=== PATIENT | female | born 1945 | race Caucasian/White ===

== ENCOUNTER 2016-04-16 09:01 | Observation (INO) | payer MEDICARE ==
[~2016-04-16] VITALS: Ht 160 cm; Wt 53.6 kg
--- NOTE | 2016-04-16 09:13 | ED.REPORT ---
HPI-Trauma Minor / Fall Date of Service Apr 16, 2016 ED Provider: Dr. Bi Mandujano Patient is a 70 year old female with a history of osteoporosis who reports to the ED via EMS complaining of right knee pain after falling down one stair She turned to walk down the stairs, missed the last step and landed on her right knee. She did not lose consciousness and has no pain if she does not move the leg. Pt could not get up after fall and could not put any pressure on the leg. The pain has gradually worsened since the fall. She had a right femur fracture several years ago which required surgery. Pt took one hydrocodone this morning. Nursing Notes Stated Complaint: GROUD LEVEL FALL/RIGHT KNEE PAIN Nursing Notes Reviewed: Yes Allergies: Coded Allergies: celecoxib (Verified Allergy, Unknown, 04/16/16) Scheduled Amlodipine (Amlodipine) 10 Mg Tablet 10 MG PO DAILY Carvedilol (Carvedilol) 6.25 Mg Tablet 9.37 MG PO BID Simvastatin (Simvastatin) 10 Mg Tablet 10 MG PO HS General Time Seen by MD: 09:13 Chief Complaint Extremity pain (right knee) Hx Obtained From: Patient Arrived By: Ambulance Onset Occurred: Just prior to arrival Symptom Duration: Since onset Caused by: Fall down stairs Location: Knee right Severity: Current: Moderate Severity: Maximum: Moderate Recent Healthcare: No recent doctor visit, No recent hospitalization Similar Sx Previous: No Past Medical History Past Medical History osteoporosis Basal cell CA Reports: Hypertension Past Surgical History Right femur Hysterectomy Appendectomy Smoking History Current Some Day Smoker Social History Alcohol Use: "Social" Other Social History: Ambulatory Status Independent Review of Systems Musculoskeletal: Reports: Joint pain (right knee), Joint swelling Neurologic: Denies: Lightheaded, Numbness, Syncope Complete sys rev & neg: except as marked. Physical Exam Initial Vital Signs Vital Signs (First) Date Time Temp Pulse Resp B/P Pulse Ox O2 Delivery O2 Flow Rate FiO2 04/16/16 09:20 36.7 72 17 139/33 95 Room Air Initial VS: Reviewed, Vital signs normal Head / Eyes: Atraumatic, Normocephalic, PERRL ENT: Mucous membranes moist, Conjunctiva normal, No scleral icterus Respiratory: Breath sounds normal, Clear to auscultation, No respiratory distress Abdomen / GI: Soft, Non-tender, No guarding, No rebound, No distention Back: No CVA tenderness Skin: Warm, Dry, No cyanosis Neurologic: Alert, Oriented, Nonfocal Psychiatric: Mood/affect normal, Behavior normal, Normal thought content General/Constitutional: Awake, Alert, Well appearing, Cooperative, Not toxic appearing Neck: Atraumatic, Supple, No meningismus, Full range of motion, No swelling, Non-tender Cardiovascular: Heart rate NL, Regular rhythm Heart Sounds / Murmur: Positive: Systolic murmur present.. (III/, right upper sternal border) Lower Extremity / Pelvis / MS: No deformity, Neurologic intact, Vascular intact , No compartment syndrome, Pelvis stable, Pelvis non-tender Right leg: Mid anterior tibial tenderness No tenderness of ankle, no swelling no overlying skin changes to posterior right calf 2/4 PT and DP pulses Interpretation & Diagnostics Interpretation & Diagnostics: KNEE CT IMPRESSION: Nondepressed lateral tibial plateau fracture. Mildly displaced fibular head fracture Severe osteopenia Partially visualized intramedullary vimal and screw fixation of the distal femur with prominent surrounding lucency raising the possibility of hardware loosening or failure. Recommend clinical correlation and if needed triple phase bone scan, versus serial radiographic followup could be performed. Small to moderate joint effusion Dictated by: Jay Snider M.D. on 04/16/2016 at 14:05 Approved by: Jay Snider M.D. on 04/16/2016 at 14:05 Lab Results Interpretation Result Diagram: 04/16/16 1630 Test 04/16/16 16:09 04/16/16 16:30 Hold Urine Received (Received) White Blood Count 7.2th/mm3 (3.8-10.1) Red Blood Count 3.68mil/mm3 (3.90-5.20) Hemoglobin 11.8g/dL (12.0-15.6) Hematocrit 35.6% (35.0-46.0) Mean Corpuscular Volume 96.7fL (81-100) Mean Corpuscular Hemoglobin 32.1pg (27.0-35.0) Mean Corpuscular Hemoglobin Concent 33.1% (32.0-37.0) Red Cell Distribution Width 13.8% (12.3-15.4) Platelet Count 364bil/L (150-400) Neutrophils (%) (Auto) 52.4% (40-74) Lymphocytes (%) (Auto) 31.7% (14-46) Monocytes (%) (Auto) 12.8% (4-12) Eosinophils (%) (Auto) 2.4% (0-5) Basophils (%) (Auto) 0.6% (0-3) Prothrombin Time 10.2sec (8.1-12.5) Prothromb Time International Ratio 0.95ratio X-Ray Interpretation Xray Interpretation: KNEE X-RAY IMPRESSION: 1. Subtle radiolucency at the intercondylar notch. Differential considerations include minimally displaced fracture versus irregular trabeculation. 2. Cortical buckling of the lateral tibial metaphysis. No priors are available to determine the acuity of this finding. No definite fracture visualized. Please correlate clinically with the above findings. If further characterization is warranted, CT of the knee may be helpful. 3. Findings suspicious for loosening of the distal aspect of the intramedullary femoral nail. Dictated by: Rosalba Champagne M.D. on 04/16/2016 at 10:55 Approved by: Rosalba Champagne M.D. on 04/16/2016 at 10:55 Interpretation / Wet Read by: Interpret - Radiologist Xray Interpretation: TIBIA/FIBULA X-RAY IMPRESSION: 1. Buckling of the lateral tibial metaphysis. The acuity of this finding is unknown without prior comparisons. If the patient verses focal pain in this region, acute injury could be suspected. 2. Subtle radiolucency through the intercondylar notch. Although this may represent trabecular irregularity, minimally displaced fracture could also be considered in the differential diagnosis. Dictated by: Rosalba Champagne M.D. on 04/16/2016 at 10:58 Approved by: Rosalba Champagne M.D. on 04/16/2016 at 10:58 Interpretation / Wet Read by: Interpret - Radiologist Re-Eval/Medical Decision Med Decision/Clinical Course 70-year-old female with a history of hypertension, hyperlipidemia, and osteoporosis presents with severe leg pain after a fall down the stairs. CT reveals fibular head fracture, tibial plateau fracture, and osteoporosis. Dr. Lawson recommended immobilization for 6 weeks and nonweightbearing. She is to follow up with him as an outpatient. We try to discharge the patient she was unable to get out of bed despite having a physical therapy consultation and having them try to help. Social work was unable to help find placement this evening. Patient's home is not amenable to her getting around with this injury. She will need to be admitted as an observation to help find placement tomorrow and for pain control. Patient and her understand and agree with this plan Re-Evaluation/Progress #1: Time of Eval: 10:45 Re-Evaluation/Progress Note: Pt rechecked. Informed pt of diagnosis and plan for treatment. Pt understands and agrees with plan. Re-Evaluation/Progress #2: Time of Eval: 13:47 Patient Status: Condition improved, Moderate relief, Pain improved Re-Evaluation/Progress Note: Pt is rechecked. Pain is much improved after oxycodone. Re-Evaluation/Progress #3: Time of Eval: 14:30 Re-Evaluation/Progress Note: Pt rechecked. Informed of plant for treatment. Pt does not need surgery but will need to wear a knee imobilizer for 3 months. Consultation #1: Referral / Consult Name: Edmundo Lawson DO Consulted With: Orthopedic Call Returned at: 13:30 Bakery Helper: Agrees with eval, Agrees with plan Note: case discussed Consultation #2: Referral / Consult Name: Edmundo Lawson DO Call Returned at: 14:19 Note: Recommends knee immobilization for 6 weeks, nonweightbearing. Follow up with him in clinic next week. Consultation #3: Note: Dr. Sanchez was paged and accepts admission as patient is unable to ambulate despite consultation with physical therapy and social work trying to arrange a place for her to stay which has been unsuccessful. Counseled Regarding: Diagnosis, Lab results, Need for admission Discharge & Departure Impression: Primary Impression: Tibial plateau fracture, right Encounter type: initial encounter Fracture type: closed Qualified Code: S82.141A - Displaced bicondylar fracture of right tibia, initial encounter for closed fracture Additional Impressions: Fall down stairs Encounter type: initial encounter Qualified Code: W10.8XXA - Fall (on) (from ) other stairs and steps, initial encounter Fracture of head of fibula Encounter type: initial encounter Fracture type: closed Laterality: right Qualified Code: S82.831A - Other fracture of upper and lower end of right fibula, initial encounter for closed fracture Osteoporosis Inability to ambulate due to right knee Disposition: ADMITTED TO HOSPITAL Discharge Condition All VS Reviewed: Yes Condition: Stable Patient Instructions: How to Choose and Use a Walker (GEN), Leg Fracture (ED) Referrals: Edmundo Lawson DO [facility] Scribe Attestation Portion of this note were transcribed by Rafal Zelaya and Josefina Akhtar. I, Dr. Gu, personally performed the history, physical exam, and medical decision-making: I reviewed and confirmed the accuracy for the information in the transcribed note. Signed by: clifton Rojas, 04/16/16 1100 copies to: Edmundo Lawson Gary R DO Apr 16, 2016 09:13 JOSEFINA AKHTAR Apr 16, 2016 09:51 RAFAL EZLAYA Apr 16, 2016 11:49
[2016-04-16 09:20] VITALS: BP 139/33; PULSE 72; RESP 17; O2SAT 95
[2016-04-16] MEDS ORDERED: HYDROcodone-APAP 5-325 mg Tablet PO ONE ×2 (10:35→12:05)
[2016-04-16 10:54] VITALS: BP 135/73; PULSE 64; RESP 15; O2SAT 95
--- NOTE | 2016-04-16 10:56 | DRSVH ---
PROCEDURE: X-RAY RIGHT KNEE, THREE VIEWS ([id number]) INDICATIONS: r tibia pain after fall TECHNIQUE: 3 views of the knee were acquired. COMPARISON: [facility], CR, XR TIBIA FIBULA 2VW RT, 04/16/2016, 10:11. FINDINGS: Bones: Bones are osteopenic. Visualized portions of the femoral intramedullary nail are intact. Bony lucency is present well around the femoral nail suggesting loosening. A subtle radiolucent line is pr esent near the intercondylar notch. It is unclear whether this represents trabecular irregularities o r a small minimally displaced fracture. There is cortical buckling along the lateral aspect of the pr oximal tibia. It is unclear whether this represents a chronic finding or an acute finding as no prior comparisons are available. Soft tissues: There is a small joint effusion. IMPRESSION: 1. Subtle radiolucency at the intercondylar notch. Differential considerations include minimally disp laced fracture versus irregular trabeculation. 2. Cortical buckling of the lateral tibial metaphysis. No priors are available to determine the acuit y of this finding. No definite fracture visualized. Please correlate clinically with the above findings. If further characterization is warranted, CT of the knee may be helpful. 3. Findings suspicious for loosening of the distal aspect of the intramedullary femoral nail. Dictated by: Rosalba Champagne M.D. on 04/16/2016 at 10:55 Approved by: Rosalba Champagne M.D. on 04/16/2016 at 10:55
--- NOTE | 2016-04-16 11:00 | DRSVH ---
PROCEDURE: X-RAY RIGHT TIBIA/FIBULA, TWO VIEWS ([id number]) INDICATIONS: r tibia pain after fall TECHNIQUE: 2 views of the tibia and fibula were acquired. COMPARISON: None. FINDINGS: Bones: There is buckling of the lateral tibial metaphysis, the acuity of which is unknown. Subtle rad iolucency is present at the intercondylar notch. No other findings to suggest fracture or dislocation . Soft tissues: No suspicious soft tissue calcifications or masses. IMPRESSION: 1. Buckling of the lateral tibial metaphysis. The acuity of this finding is unknown without prior com parisons. If the patient verses focal pain in this region, acute injury could be suspected. 2. Subtle radiolucency through the intercondylar notch. Although this may represent trabecular irregu larity, minimally displaced fracture could also be considered in the differential diagnosis. Dictated by: Rosalba Champagne M.D. on 04/16/2016 at 10:58 Approved by: Rosalba Champagne M.D. on 04/16/2016 at 10:58
[2016-04-16 13:23] VITALS: BP 119/45; PULSE 65; RESP 18; O2SAT 97
--- NOTE | 2016-04-16 14:06 | DRSVH ---
PROCEDURE: CT KNEE RIGHT W/O CONTRAST ([id number]) INDICATIONS: unable to walk after fall TECHNIQUE: Noncontrast 1-1.5 mm axial sections acquired from the mid-patella to the proximal tibia, with coronal and sagittal reformats. COMPARISON: [facility], CR, XR TIBIA FIBULA 2VW RT, 04/16/2016, 10:11. FINDINGS: Image quality: Excellent. Bones: Diffuse osteopenia. Oblique, lateral tibial metaphyseal fracture, for example image 74 series 4. No definite depression of the articular surface. The fracture appears to extend to the base of the intercondylar notch although not well seen due to severe osteopenia. Mildly displaced fracture of th e fibular head Post surgical changes related to intramedullary vimal and screw fixation in the distal femur. Mild deg enerative joint disease with subchondral sclerosis. Soft tissues: Moderate joint effusion. IMPRESSION: Nondepressed lateral tibial plateau fracture. Mildly displaced fibular head fracture Severe osteopenia Partially visualized intramedullary vimal and screw fixation of the distal femur with prominent surroun ding lucency raising the possibility of hardware loosening or failure. Recommend clinical correlation and if needed triple phase bone scan, versus serial radiographic followup could be performed. Small to moderate joint effusion Dictated by: Jay Snider M.D. on 04/16/2016 at 14:05 Approved by: Jay Snider M.D. on 04/16/2016 at 14:05
--- NOTE | 2016-04-16 16:12 | NUR ---
Evaluation completed. Please go to "Notes" then click on "Assessments and Notes" (bottom left corner of screen). Then select appropriate discipline tab on top of screen.
[2016-04-16 16:32] VITALS: BP 141/55; PULSE 69; RESP 13; O2SAT 97
[2016-04-16] MEDS ORDERED: CARV6.252 PO (16:38)
[2016-04-16] MEDS ORDERED: AMLO10TA3 PO (16:38)
[2016-04-16] MEDS ORDERED: SIMV10TA4 PO (16:38)
[2016-04-16 16:51] LABS: BASOPHILS % (AUTO) 0.6 % (0-3); EOSINOPHILS % (AUTO) 2.4 % (0-5); MONOCYTES % (AUTO) 12.8 % (4-12); Mean Corpuscular Hemoglobin 32.1 pg (27.0-35.0); Mean Corpuscular Volume 96.7 fL (81-100); NEUTROPHILS % (AUTO) 52.4 % (40-74); Platelet Count 364 bil/L (150-400)
[2016-04-16 17:03] LABS: INR 0.95 ratio
[2016-04-16] MEDS ORDERED: Alum-Mag Hydrox-Simeth 30 mL Suspension PO PRN (17:55)
[2016-04-16] MEDS ORDERED: Ondansetron 2 mg/mL 2 mL Inj IVPUSH PRN ×2 (17:55→18:00)
--- NOTE | 2016-04-16 18:30 | NUR ---
Arrival Pt arrived to the floor via one gurney. Pt hollered out in pain and clutched the side of the bed when we slid her to the bed from the gurney. Pt is tearful and states that this is the worst pain of her whole life. Paged regarding her pain.
[2016-04-16 18:53] VITALS: BP 147/71; PULSE 83; RESP 19; O2SAT 92
[2016-04-16] MEDS ORDERED: ALPR0.5T8 PO (20:11)
[2016-04-16] MEDS: HYDROmorphone 0.5 mg/0.5 mL iSecure Syringe IVPUSH PRN (20:52)
[2016-04-16] MEDS: ALPRAZolam 0.5 mg Tablet PO PRN (20:56)
[2016-04-16 21:06] VITALS: BP 190/74; PULSE 93; RESP 20; O2SAT 93
--- NOTE | 2016-04-16 21:42 | PCM.HPMED ---
Subjective Date of Service Apr 16, 2016 Primary Provider: Admitting Physician: Corin Sanchez MD Primary Care Physician: Trinidad Kaur MD Attending Physician: Corin Sanchez MD Chief Complaint: Right knee pain after fall HISTORY was OBTAINED FROM PATIENT / MEDITECH NOTES History of present illness 70-year-old female, smoker, osteoporosis, missed a step and landed on her knee right, presented to the ER due to pain of the knee right. She was found to have tibial fracture. Dr. Jernigan from orthopedics recommended immobilization and nonweightbearing for 6 weeks with follow-up in his office. In the ER she was unable to ambulate with physical therapy and was admitted for pain control and PT. Review of Systems - none of the following - F/C/sick contact / wt change/ BARRIENTOS / lightheaded / dizziness / sob / cough / cp / acid reflux / n/v/diarrhea / bleeding/bruising / leg swelling / change in voiding / yeast infections / rash FAMILY HX osteoporosis SOCIAL HX smoker < 2cig per day MEDICATIONS alprazolam, amlodipine, Coreg, simvastatin, vit D Past Medical/Surgical HX Hypertension, dyslipidemia, anxiety right femur fracture GLF osteoporosis, considering fosamax Allergies Coded Allergies: celecoxib (Verified Allergy, Unknown, 04/16/16) PMH Social History Hx Alcohol Use: No Alcoholic Drinks Per Day: socially Hx Substance Use: No Smoking Status: Current Some Day Smoker Exam Vital Signs Vital Sign - Last Date Time Temp Pulse Resp B/P Pulse Ox O2 Delivery O2 Flow Rate FiO2 04/16/16 21:06 36.9 93 20 190/74 93 Room Air Lab and Diagnostics Labs Exam on admission NAD A and O x 3 mood affect WNL NC/AT no icterus no injected eyes EOMI PERRL /no pharyngeal lesions/ no oral lesions / hearing intact Supple neck CTAB equal chest rise / no accessory muscle use / speaks in full sentences / no rrw RRR S1 S2 / no mrg / 2+ radial pulses Soft nt nd + BS no hepatosplenomegaly No edema no cyanosis no ecchymosis of lower extremities No rash / no jaundice BACON ill fitting left llower extremity brace Abraham to be placed due to pain with bedpan Result Diagram: 04/16/16 1630 04/16/16 1630 Assessment & Plan Active issues and reason for admission Right knee fracture due to Ground-level fall, with radiographic osteoporosis, severe, w/ ongoing pain --already on Vit D low dose, cannot tolerate high does, considering fosamax w/ PCP, not convinced --pending PT, immobilize right leg x [address] Markham 6 weeks. --morphine not helpful, start percocet - tolerated w/ prior femur fracture, prn diluadid --dc abraham when pain controlled Chronic issues known prior to admission, present on admission anxiety smoker, < 2 cig per day HTN/DLP --resume home meds Diet cardiac DVT prophylaxis heparin Code full Disposition obs status Assessment and plan were discussed with patient. Corin Sanchez MD Apr 16, 2016 21:42
[2016-04-16] MEDS ORDERED: oxyCODONE-Acetamin 5-325 mg Tablet PO PRN (21:45)
[2016-04-16 22:22] LABS: APPEARANCE,URINE CLEAR (CLEAR,HAZY); COLOR,URINE STRAW (YELLOW); OCCULT BLOOD,URINE NEGATIVE (NEGATIVE); UROBILINOGEN,URINE NORMAL (NORMAL)
[2016-04-17 01:04] VITALS: BP 178/72; PULSE 89; RESP 18; O2SAT 93
[2016-04-17] MEDS: Heparin 5,000 Unit/mL Inj SUBQ SCH ×3 (01:20→16:38)
--- NOTE | 2016-04-17 03:35 | NUR ---
Update on care Pt. has been in extreme amount of pain throughout night. IV Dilaudid seems to lower pain a bit to a more comfortable level. Pt. refused full skin assessment, as she stated "I can't roll to my side, it's too painful". Will continue to monitor.
[2016-04-17] MEDS: oxyCODONE-Acetamin 5-325 mg Tablet PO PRN ×2 (03:56→08:52)
[2016-04-17 05:21] VITALS: BP 155/75; PULSE 81; RESP 20; O2SAT 95
[2016-04-17 09:41] VITALS: BP 137/56; PULSE 76; RESP 17; O2SAT 95
--- NOTE | 2016-04-17 11:10 | NUR ---
Social Work: Initial Assessment D: Per EMR review, pt is a 70 year old female admitted for Tibial Plateu Fracture. Pt is Medicare with [employer] supplement; pt has no LTC insurance or VA benefits. PCP is Trinidad Kaur MD. NOK is Edmundo Erazo, Spouse, . Pt is in observation status. No readmit score entered at this time. Advanced directives information provided to patient and spouse. CONCRETE VAULT MAKER met with pt at bedside to complete dcp. Sw role explained. See initial assessment. Pt lives with her spouse on [address]. She is completely I at baseline and missed a step resulting in an inoperable knee fracture. Pt currently in a knee immobilizer with 6 weeks non-weightbearing orders. Pt states her home has 17 internal stairs with 3 steps to enter. Pt has never had home health or skilled rehab placements. CONCRETE VAULT MAKER reviewed discharge options with pt. At this time, pt states that her pain is not controlled and that she cannot even have her sock removed without writhing pain. MD is aware and has ordered some new pain medications. Ortho PA is also coming to re-evaluate the pt's knee immobilizer. Pt and spouse understand that due to observation status, a stay at skilled rehab would be a private pay expense. They would like a private pay quote for [facility]. Physical therapy previously worked with pt while in the ER however due to pt's pain a full evaluation was not completed. CONCRETE VAULT MAKER spoke with PT who will see the pt today after pt's pain is better controlled to assess pt's current needs/abilities. A: Pt who was I prior to admission. P: Evolving; CONCRETE VAULT MAKER to follow up with pt and spouse after PT evaluation this afternoon. Pt to either discharge to skilled rehab paying privately or home with home health and possible private pay caregivers. ALLEY Mao Addendum: 04/17/16 at 1119 by FRANCIA M HALTERMA SS Amended: Links added. Addendum: 04/17/16 at 1630 by FRANCIA TROTTER SS Pt has declined to work with PT today stating pain is not controlled enough. CONCRETE VAULT MAKER met with pt at bedside to request she work with PT so that appropriate assessment, teaching and planning can occur. Pt states that she will do this tomorrow. CONCRETE VAULT MAKER reminded pt of observation status however pt seems to have no sense of urgency to ambulate or discuss a plan. CONCRETE VAULT MAKER discussed private pay SNF options and provided rates for [facility]. Pt and spouse state that they do not wish to have referrals sent anywhere and that they plan to go home at time of discharge, tour facilities as an outpatient and then decide which one they would like to pay privately at. Pt will require a wheelchair with an elevated leg rest. Dr. Lawson has ordered this and dictated necessity for wheelchair. CONCRETE VAULT MAKER contacted [employer] and [employer]. None of the suppliers can deliver this piece of equipment for pt's anticipated discharge tomorrow. [employer] was willing to deliver this equipment but is not contracted with Medicare. CONCRETE VAULT MAKER inquired if pt was able to pay privately or rent the wheelchair through [employer]. They declined this stating that they would like for it to be billed through Medicare. They understand this will postpone discharge likely until Tuesday when a chair can be delivered and that they are in observation status.
[2016-04-17] MEDS: hydrOXYzine Pamoate 25 mg Capsule PO PRN ×2 (11:59→21:15)
[2016-04-17] MEDS: HYDROmorphone 0.5 mg/0.5 mL iSecure Syringe IVPUSH PRN (12:40)
--- NOTE | 2016-04-17 13:56 | CONS ---
[address] [address] CONSULTATION REPORT PATIENT: EMILY ZARATE : 1945 MR#: [id number] ADMIT: 04/16/2016 JOB ID: [id number] DATE OF SERVICE: 04/17/2016 CHIEF COMPLAINT: Right knee pain. HISTORY OF PRESENT ILLNESS: The patient is a 70-year-old female who missed the last step coming down a staircase and injured her right knee. She was unable to ambulate after the fall. She had onset of severe pain, sharp as well as achy, and with spasms. PAST MEDICAL HISTORY: Significant for hypertension, dyslipidemia, right femur fracture, osteoporosis. MEDICATIONS: Include alprazolam, amlodipine, Coreg, simvastatin, vitamin D. SOCIAL HISTORY: Positive for smoking. ALLERGIES: Celebrex. REVIEW OF SYSTEMS: The patient denies fevers, chills, lightheadedness, dizziness, shortness of breath, chest pain. PHYSICAL EXAMINATION: Blood pressure 135/56, pulse rate 76, respirations 17, temperature 36.7. She is alert and cooperative, in no acute distress. Right lower extremity: Her skin is intact overlying the knee. Her compartments are soft. She has moderate effusion present in the knee. She has pain with any range of motion of the knee and tenderness over the proximal tibia. She is able to move her toes. Sensation to the foot is intact. Dorsalis pedis pulses plus two. Capillary refill less than 3 seconds. Denies any other musculoskeletal injuries. Her left knee has excellent range of motion, without pain or deformity. IMAGING: X-rays demonstrate a right nondisplaced lateral tibial plateau fracture. ASSESSMENT: Right nondisplaced lateral tibial plateau fracture. PLAN: We discussed treatment options and I recommended nonoperative treatment with a knee immobilizer and nonweightbearing. She was placed into an appropriately sized knee immobilizer. I would like her remain nonweightbearing on the right lower extremity for likely a period of 6-12 weeks. I would like her to follow up with me in the clinic in about 7-10 days for recheck with x-rays. Anticipate that she will need to use a walker as well as a wheelchair with leg extension and her is going to need time in order to build a ramp to get her into the home and also to make arrangements, as they generally sleep upstairs. I am initiating fracture care for this patient for closed treatment right tibial plateau fracture and I spent 40 minutes of [id number] time with the patient, greater than 50% of which was in discussion of and coordination of care and counseling regarding her injury and treatment.
--- NOTE | 2016-04-17 15:44 | PCM.PNMED ---
Subjective Date of Service Apr 17, 2016 Subjective pain not controlled w/ oral narcotics, still relied on dialudid Exam Vital Signs Vital Sign - Last Date Time Temp Pulse Resp B/P Pulse Ox O2 Delivery O2 Flow Rate FiO2 04/17/16 09:41 36.7 76 17 137/56 95 Room Air Intake and Output 04/16/16 04/16/16 04/17/16 Cumulative From/Thru 15:00 23:00 07:00 04/16/16 09:20 - 04/17/16 04:51 Intake Total 0 ml 0 ml Output Total 0 ml 0 ml Balance 0 ml 0 ml Intake Oral 0 ml 0 ml Output Urine Total 0 ml 0 ml Exam NAD A and O x 3 eating dinner CTAB RRR blowing systolic murmur soft nt nd + BS longer immobilizer on right lower extremity no edema toes are warm and mobile Lab and Diagnostics Result Diagram: 04/16/16 1630 04/16/16 1630 Assessment & Plan Active issues and reason for admission Right tibial plateau fracture due to Ground-level fall, with radiographic osteoporosis, severe, w/ ongoing pain and spasm --already on Vit D low dose, increase, though cannot tolerate high does, will accept fosamax w/ PCP now, --pending PT, nonweight bearing and immobilize right knee x 6-12 weeks, walker, knee immobilizer. Anticipate that she will need to use a walker as well as a wheelchair with leg extension .F/U /dr Lawson in 7-10 days in office w/ xray --morphine not helpful, started percocet and increased, prn diluadid -- add vistaril for spams Chronic issues known prior to admission, present on admission osteoporsis anxiety smoker, < 2 cig per day HTN/DLP --resume home meds --vitamin d Diet cardiac DVT prophylaxis heparin Code full Disposition obs status Assessment and plan were discussed with patient . VTE Mechanical Devices: Intermittant Pneumatic CD Corin Sanchez MD Apr 17, 2016 15:44
[2016-04-17] MEDS: oxyCODONE-Acetamin 10-325 mg Tablet PO PRN ×2 (15:45→21:15)
[2016-04-17 15:54] VITALS: BP 160/65; PULSE 75; RESP 16; O2SAT 92
--- NOTE | 2016-04-17 17:12 | NUR ---
Observation information provided and explained.
[2016-04-17 20:12] VITALS: BP 127/65; PULSE 69; RESP 16; O2SAT 92
[2016-04-18] MEDS: Heparin 5,000 Unit/mL Inj SUBQ SCH ×3 (01:02→16:46)
[2016-04-18] MEDS: hydrOXYzine Pamoate 25 mg Capsule PO PRN ×5 (05:13→21:04)
[2016-04-18] MEDS: oxyCODONE-Acetamin 10-325 mg Tablet PO PRN ×5 (05:13→21:04)
--- NOTE | 2016-04-18 06:31 | NUR ---
Pain Pt reporting knee/calf pain up to 12/12 and has been taking 2 Percocet and 1 tab of vistaril. Pt reports this to be adequate for pain relief. Pt has immobilizer on left leg and absolutely refuses to move her left leg at all. Orthos intact. Pt has been using the bed cameron to void and has been getting better at doing this. Addendum: 04/18/16 at 2142 by NABIL ANTHONY RN RIGHT LEG NOT LEFT
[2016-04-18 08:02] VITALS: BP 119/65; PULSE 81; RESP 17; O2SAT 92
[2016-04-18 12:39] VITALS: BP 146/69; PULSE 83; RESP 18; O2SAT 92
--- NOTE | 2016-04-18 14:41 | PCM.PNMED ---
Subjective Date of Service Apr 18, 2016 Subjective She remains immobilized by right knee pain and probably mostly by fear of right knee pain. She complains of poor sleep although she looked to staff like she was sleeping well last night. She has been too drowsy appearing to be placed on additional sleep sedative. Placement is proving to be a challenge. Exam Vital Signs Vital Sign - Last Date Time Temp Pulse Resp B/P Pulse Ox O2 Delivery O2 Flow Rate FiO2 04/17/16 20:12 36.8 69 16 127/65 92 Room Air Intake and Output 04/17/16 04/17/16 04/18/16 Cumulative From/Thru 15:00 23:00 07:00 04/16/16 09:20 - 04/18/16 05:43 Intake Total 120 ml 410 ml 530 ml Output Total 840 ml 1241 ml 2081 ml Balance -720 ml -831 ml -1551 ml Intake Oral 120 ml 400 ml 520 ml IV Total 10 ml 10 ml Output Urine Total 840 ml 1241 ml 2081 ml # Voids 3 3 # Bowel Movements 0 0 Exam Heart: RRR without murmur Lungs: CTAB Ext: No ankle edema. The right knee is in a brace. She is tender and fearful of touch/movement in a non physiologic manner. IVs and Medications Medications Reviewed: Medications were reviewed in detail Lab and Diagnostics Result Diagram: 04/16/16 1630 04/16/16 1630 X-Rays, CTs and MRIs CT KNEE RIGHT W/O CONTRAST ([id number]) INDICATIONS: unable to walk after fall TECHNIQUE: Noncontrast 1-1.5 mm axial sections acquired from the mid-patella to the proximal tibia, with coronal and sagittal reformats. COMPARISON: [facility], CR, XR TIBIA FIBULA 2VW RT, 04/16/2016, 10: 11. FINDINGS: Image quality: Excellent. Bones: Diffuse osteopenia. Oblique, lateral tibial metaphyseal fracture, for example image 74 series 4. No definite depression of the articular surface. The fracture appears to extend to the base of the intercondylar notch although not well seen due to severe osteopenia. Mildly displaced fracture of the fibular head Post surgical changes related to intramedullary vimal and screw fixation in the distal femur. Mild degenerative joint disease with subchondral sclerosis. Soft tissues: Moderate joint effusion. IMPRESSION: Nondepressed lateral tibial plateau fracture. Mildly displaced fibular head fracture Severe osteopenia Partially visualized intramedullary vimal and screw fixation of the distal femur with prominent surrounding lucency raising the possibility of hardware loosening or failure. Recommend clinical correlation and if needed triple phase bone scan, versus serial radiographic followup could be performed. Small to moderate joint effusion Dictated by: Jay Snider M.D. on 04/16/2016 at 14:05 Assessment & Plan Active issues Right tibial plateau fracture due to Ground-level fall, with radiographic osteoporosis, severe, w/ ongoing pain and spasm --already on Vit D low dose, increase, though cannot tolerate high does, will accept fosamax w/ PCP now, --pending PT, nonweight bearing and immobilize right knee x 6-12 weeks, walker, knee immobilizer. Anticipate that she will need to use a walker as well as a wheelchair with leg extension .F/U /dr Lawson in 7-10 days in office w/ xray --morphine not helpful, started percocet and increased, prn diluadid -- add vistaril for spams -- Anxiety about pain is a major contributor to her disabled / bed confined attitude so far. -- She will need lots of reassurance, and will need a wheelchair with a foot rest extension before going home. Partially visualized intramedullary vimal and screw fixation of the distal femur with prominent surrounding lucency raising the possibility of hardware loosening or failure. --Not mentioned in Dr. Lawson's note. This would appear to be a chronic type of problem that can be deferred to her orthopedic office follow up visit. Chronic issues known prior to admission, present on admission osteoporsis anxiety smoker, < 2 cig per day HTN/DLP --resume home meds --vitamin d Diet cardiac DVT prophylaxis heparin Code full Disposition obs status, Assessment Counselor working on a discharge plan. Assessment and plan were discussed with the patient and her . VTE Mechanical Devices: Intermittant Pneumatic CD Daniel Randolph MD Apr 18, 2016 07:46
[2016-04-18 18:07] VITALS: BP 118/58; PULSE 93; RESP 18; O2SAT 90
--- NOTE | 2016-04-18 19:28 | NUR ---
Pain P: Pt continues to rate pain at an "Okay" 6/10 at rest but has severe pain with any movement or contact. Pt refusing turns and heel floating despite education. Only able to float heel for 3 hours today. Percocet x2 causes pt to be drowsy and confused and did nothing to stop severe pain with movement. I: Percocet dose lowered to 1 tablet and given with Vistaril. Anxiety coaching and deep breathing taught prior to movement. E: Same pain control effects noted with pt more alert and active. Pt refused multiple attempts to increase dose back to 2 tablets. Pt got to EOB with PT today and tolerated heel floating and frequent bedpan use. Much more active today.
[2016-04-18 19:45] VITALS: BP 122/55; PULSE 92; RESP 16; O2SAT 90
[2016-04-18 21:50] VITALS: RESP 16; O2SAT 94
[2016-04-19] MEDS: Heparin 5,000 Unit/mL Inj SUBQ SCH ×3 (00:38→17:27)
--- NOTE | 2016-04-19 02:34 | NUR ---
Activity/pain Pt reporting pain to be more tolerable tonight, up to 7/10 and requiring only 1 tab of Percocet and 1 tab of Vistaril. Pt has allowed her heels to be floated, skin is red but blanches, mepilex intact to heel. Pt will not let us reposition/ move her right leg due to pain, despite education on skin protection. Pt continues to use bedpan. Allowed SCDs on for about 4 hrs and then wanted to "take a break" Pt did receive her heparin shot as well. Leg immobilizer in place on right leg, orthos intact. Ice applied to right knee.
[2016-04-19] MEDS: hydrOXYzine Pamoate 25 mg Capsule PO PRN ×4 (04:52→21:32)
[2016-04-19] MEDS: oxyCODONE-Acetamin 10-325 mg Tablet PO PRN ×4 (04:53→21:32)
[2016-04-19 07:14] LABS: BASOPHILS % (AUTO) 0.3 % (0-3); MONOCYTES % (AUTO) 8.3 % (4-12); Mean Corpuscular Volume 97.8 fL (81-100); NEUTROPHILS % (AUTO) 74.4 % (40-74); Platelet Count 313 bil/L (150-400)
[2016-04-19 08:12] VITALS: BP 109/64; PULSE 77; RESP 16; O2SAT 91
--- NOTE | 2016-04-19 11:57 | NUR ---
Social Work Continued Discharge Planning: SW met with patient at bedside to discuss discharge plan. Therapy recommending SNF placement at this time. Patient and states plan as home with who to provide support and care. Patient states not wanting to discharge to SNF as to care for her needs. Patient and states that ramp to be built to assist with transfers into home with wheelchair. Patient states bed to be obtained for home use as no bed located on main floor. Patient and in agreement to [facility] at this time. Choice as [facility]. Choice list offered. SW followed up on wheelchair order previously obtained. SW contacted [employer], and spoke to rep Fernie who states that order received and processing. Fernie states that insurance auth to be attempted but due to holiday, wheelchair may be unable to be delivered. Face to face signed and access provided to [facility]. SW spoke to [facility] rep [employer] who was aware and to begin service arrangements upon discharge. SW to follow. PLAN: Home with and [facility] to follow. DME for wheelchair being processed via [employer], and awaiting insurance auth Elina HAGER
--- NOTE | 2016-04-19 12:57 | PCM.PNMED ---
Subjective Date of Service Apr 19, 2016 Subjective pt c/o pain 7-9/10 with minimal movement - eating with at bedside. will plan for likely dc tomorrow to SNF which pt did not consider until notified by myself. Pt states she will think about it, cont pain control today - no cp/sob/f Exam Vital Signs Vital Sign - Last Date Time Temp Pulse Resp B/P Pulse Ox O2 Delivery O2 Flow Rate FiO2 04/19/16 08:12 37.2 77 16 109/64 91 Room Air Intake and Output 04/18/16 04/18/16 04/19/16 Cumulative From/Thru 15:00 23:00 07:00 04/16/16 09:20 - 04/19/16 06:26 Intake Total 300 ml 1400 ml 400 ml 2630 ml Output Total 525 ml 2500 ml 600 ml 5706 ml Balance -225 ml -1100 ml -200 ml -3076 ml Intake Oral 300 ml 1400 ml 400 ml 2620 ml IV Total 0 ml 10 ml Output Urine Total 525 ml 2500 ml 600 ml 5706 ml # Voids 4 7 # Bowel Movements 0 0 0 Exam Heart: RRR +SM 2/6 at RUSB Lungs: CTAB, no w/r/r Ext: No ankle edema. The right knee is in a brace. motor exam limited d/t pain, sensation intact IVs and Medications Medications Reviewed: Medications were reviewed in detail Lab and Diagnostics Result Diagram: 04/19/16 0655 04/19/16 0655 X-Rays, CTs and MRIs CT KNEE RIGHT W/O CONTRAST ([id number]) INDICATIONS: unable to walk after fall TECHNIQUE: Noncontrast 1-1.5 mm axial sections acquired from the mid-patella to the proximal tibia, with coronal and sagittal reformats. COMPARISON: [facility], CR, XR TIBIA FIBULA 2VW RT, 04/16/2016, 10: 11. FINDINGS: Image quality: Excellent. Bones: Diffuse osteopenia. Oblique, lateral tibial metaphyseal fracture, for example image 74 series 4. No definite depression of the articular surface. The fracture appears to extend to the base of the intercondylar notch although not well seen due to severe osteopenia. Mildly displaced fracture of the fibular head Post surgical changes related to intramedullary vimal and screw fixation in the distal femur. Mild degenerative joint disease with subchondral sclerosis. Soft tissues: Moderate joint effusion. IMPRESSION: Nondepressed lateral tibial plateau fracture. Mildly displaced fibular head fracture Severe osteopenia Partially visualized intramedullary vimal and screw fixation of the distal femur with prominent surrounding lucency raising the possibility of hardware loosening or failure. Recommend clinical correlation and if needed triple phase bone scan, versus serial radiographic followup could be performed. Small to moderate joint effusion Dictated by: Jay Snider M.D. on 04/16/2016 at 14:05 Assessment & Plan Active issues Right tibial plateau fracture due to Ground-level fall, with radiographic osteoporosis, severe, w/ ongoing pain and spasm --already on Vit D low dose, increase, though cannot tolerate high does, will accept fosamax w/ PCP now, --pending PT, nonweight bearing and immobilize right knee x 6-12 weeks, walker, knee immobilizer. Anticipate that she will need to use a walker as well as a wheelchair with leg extension .F/U /dr Lawson in 7-10 days in office w/ xray --morphine not helpful, started percocet and increased -- add vistaril for spams -- Anxiety about pain is a major contributor to her disabled / bed confined attitude so far. -- She will need lots of reassurance, and will need a wheelchair with a foot rest extension before going home --> will consider SNF tonight after lengthy discussion at bedside Partially visualized intramedullary vimal and screw fixation of the distal femur with prominent surrounding lucency raising the possibility of hardware loosening or failure. --Not mentioned in Dr. Lawson's note. This would appear to be a chronic type of problem that can be deferred to her orthopedic office follow up visit. Chronic issues known prior to admission, present on admission osteoporsis anxiety smoker, < 2 cig per day HTN/DLP --resume home meds --vitamin d Diet cardiac DVT prophylaxis heparin Code full Disposition obs status, likely dc to snf tomorrow if CM/SW able to facilitate. Assessment and plan were discussed with the patient and her . Pain Evaluation: Pain not Controlled VTE Mechanical Devices: Intermittant Pneumatic CD Resuscitation Status: CPR: Attempt Resuscitation Time spent 35 minutes spent with evaluation and mgmt Stu Moore DO Apr 19, 2016 12:57
[2016-04-19 16:00] VITALS: BP 103/54; PULSE 84; RESP 17; O2SAT 92
--- NOTE | 2016-04-19 19:26 | NUR ---
Pain Pt pain well controlled with 1 Percocet and 1 Vistaril q4 hours PRN, Right leg in immobilizer, good cap refill, pulses and feeling to foot. Up with PT this am, able to stand at edge of bed.
[2016-04-19 19:41] VITALS: BP 121/63; PULSE 77; RESP 18; O2SAT 94
[2016-04-20] MEDS: Heparin 5,000 Unit/mL Inj SUBQ SCH ×3 (00:38→15:43)
[2016-04-20 04:58] VITALS: BP 144/67; PULSE 74; RESP 20; O2SAT 93
[2016-04-20] MEDS: hydrOXYzine Pamoate 25 mg Capsule PO PRN ×4 (05:06→18:49)
[2016-04-20] MEDS: oxyCODONE-Acetamin 10-325 mg Tablet PO PRN ×4 (05:06→18:49)
--- NOTE | 2016-04-20 05:10 | NUR ---
Activity/pain Pt reporting pain to be more tolerable tonight, up to 5-8/10, pt spreading out pain meds to q6-7 hrs before needing. 1 tab of Percocet and 1 tab of Vistaril have been effective. Immobilizer in place to right leg, sensation intact, warm extremity, pedal pulses palpable, wiggles toes. Mepilex intact to right heel, redness still blanching. Pt continues to refuse repositioning and also did not want heel lift or SCDs despite education. Pt is getting better at using bedpan to void.
--- NOTE | 2016-04-20 07:25 | PCM.PNMED ---
Subjective Date of Service Apr 20, 2016 Subjective Patient is continuing to have right leg pain. She is status post displaced bicondylar fracture of the right tibia closed fracture. With repair. She tells me she was just sitting up at bedside for the first time yesterday. She did do some work with physical therapy yesterday. She notes she had a poor night sleeping. Exam Vital Signs Vital Sign - Last Date Time Temp Pulse Resp B/P Pulse Ox O2 Delivery O2 Flow Rate FiO2 04/20/16 04:58 36.8 74 20 144/67 93 Room Air Intake and Output 04/19/16 04/19/16 04/20/16 Cumulative From/Thru 15:00 23:00 07:00 04/16/16 09:20 - 04/20/16 06:32 Intake Total 520 ml 250 ml 3400 ml Output Total 600 ml 800 ml 7106 ml Balance -80 ml -550 ml -3706 ml Intake Oral 520 ml 250 ml 3390 ml IV Total 10 ml Output Urine Total 600 ml 800 ml 7106 ml # Voids 7 # Bowel Movements 0 0 Exam Constitutional: Elderly woman in some pain distress Head: Normocephalic atraumatic Chest: Clear to auscultation Cor: Regular rate and rhythm S1-S2 Abdomen: Soft nontender bowel sounds present Extremities: No pedal edema noted right leg has immobilizer present Lab and Diagnostics Laboratory Tests 72 Hours Test 04/19/16 06:55 White Blood Count 11.6th/mm3 (3.8-10.1) Red Blood Count 3.16mil/mm3 (3.90-5.20) Hemoglobin 10.1g/dL (12.0-15.6) Hematocrit 30.9% (35.0-46.0) Mean Corpuscular Volume 97.8fL (81-100) Mean Corpuscular Hemoglobin 32.0pg (27.0-35.0) Mean Corpuscular Hemoglobin Concent 32.7% (32.0-37.0) Red Cell Distribution Width 13.5% (12.3-15.4) Platelet Count 313bil/L (150-400) Neutrophils (%) (Auto) 74.4% (40-74) Lymphocytes (%) (Auto) 15.7% (14-46) Monocytes (%) (Auto) 8.3% (4-12) Eosinophils (%) (Auto) 1.0% (0-5) Basophils (%) (Auto) 0.3% (0-3) Sodium Level 133mEq/L (134-144) Potassium Level 3.9mEq/L (3.5-5.2) Chloride Level 96mEq/L (97-108) Carbon Dioxide Level 26mmol/L (18-29) Blood Urea Nitrogen 8mg/dL (8-27) Creatinine 0.43mg/dL (0.57-1.00) Estimat Glomerular Filtration Rate 207mL/min (>59) Glucose Level 137mg/dL (60-99) Calcium Level 8.5mg/dL (8.5-10.1) Result Diagram: 04/19/1655 04/19/16 0655 X-Rays, CTs and MRIs CT KNEE RIGHT W/O CONTRAST ([id number]) INDICATIONS: unable to walk after fall TECHNIQUE: Noncontrast 1-1.5 mm axial sections acquired from the mid-patella to the proximal tibia, with coronal and sagittal reformats. COMPARISON: [facility], CR, XR TIBIA FIBULA 2VW RT, 04/16/2016, 10: 11. FINDINGS: Image quality: Excellent. Bones: Diffuse osteopenia. Oblique, lateral tibial metaphyseal fracture, for example image 74 series 4. No definite depression of the articular surface. The fracture appears to extend to the base of the intercondylar notch although not well seen due to severe osteopenia. Mildly displaced fracture of the fibular head Post surgical changes related to intramedullary vimal and screw fixation in the distal femur. Mild degenerative joint disease with subchondral sclerosis. Soft tissues: Moderate joint effusion. IMPRESSION: Nondepressed lateral tibial plateau fracture. Mildly displaced fibular head fracture Severe osteopenia Partially visualized intramedullary vimal and screw fixation of the distal femur with prominent surrounding lucency raising the possibility of hardware loosening or failure. Recommend clinical correlation and if needed triple phase bone scan, versus serial radiographic followup could be performed. Small to moderate joint effusion Dictated by: Jay Snider M.D. on 04/16/2016 at 14:05 Assessment & Plan Active issues Right tibial plateau fracture due to Ground-level fall, with radiographic osteoporosis, severe, w/ ongoing pain and spasm --already on Vit D low dose, increase, though cannot tolerate high does, will accept fosamax w/ PCP now, --pending PT, nonweight bearing and immobilize right knee x 6-12 weeks, walker, knee immobilizer. Anticipate that she will need to use a walker as well as a wheelchair with leg extension .F/U /dr Lawson in 7-10 days in office w/ xray --morphine not helpful, started percocet and increased -- add vistaril for spams -- Anxiety about pain is a major contributor to her disabled / bed confined attitude so far. -- She will need lots of reassurance, and will need a wheelchair with a foot rest extension before going home --> will consider SNF tonight after lengthy discussion at bedside -We will work on continuing plans for continuing physical therapy [facility] facility as not safe to be discharged at this point in time will discuss with physical therapy and case management today. Partially visualized intramedullary vimal and screw fixation of the distal femur with prominent surrounding lucency raising the possibility of hardware loosening or failure. --Not mentioned in Dr. Lawson's note. This would appear to be a chronic type of problem that can be deferred to her orthopedic office follow up visit. Chronic issues known prior to admission, present on admission osteoporsis anxiety smoker, < 2 cig per day HTN/DLP --resume home meds --vitamin d Diet cardiac DVT prophylaxis heparin Code full Disposition obs status, likely dc to snf tomorrow if CM/SW able to facilitate. Assessment and plan were discussed with the patient and her . VTE Mechanical Devices: Intermittant Pneumatic CD Resuscitation Status: CPR: Attempt Resuscitation Time spent 30 minutes Bertha Schmidt MD Apr 20, 2016 07:25
[2016-04-20] MEDS ORDERED: Magnesium Hydroxide 10 mL Oral Concentration PO PRN (07:35)
[2016-04-20 11:22] LABS: APPEARANCE,URINE HAZY (CLEAR,HAZY); COLOR,URINE YELLOW (YELLOW); PH,URINE 6.5 (5.0-8.0)
[2016-04-20 11:23] LABS: OCCULT BLOOD,URINE SMALL (NEGATIVE); UROBILINOGEN,URINE NORMAL (NORMAL)
--- NOTE | 2016-04-20 14:33 | NUR ---
Pain management Pt. states pain is manageable with PRN percocet 1 tab and vistaril. She has very strong pain with any sort of movement, but did work with physical therapy today.
--- NOTE | 2016-04-20 15:42 | NUR ---
Social Work Continued Discharge Planning: SW spoke to patient and at bedside to re-discuss discharge plan. Plan is home with support and care and HHC via [facility]. Patient and not wanting SNF placement at this time. SW following with Yehuda LEYVA for wheelchair order request. [facility] spoke to Yehuda arizmendi Fernie, [phone] who states that additional supporting information needed for wheelchair. [employer] faxed all supporting information for auth. [facility] followed up later in the afternoon and states that clinical information under review at this time and auth approval from Medicare pending for wheelchair delivery. Patient and updated and aware. SW to follow PLAN: Home with and HHC via [facility] (Face to face/access provided) and wheelchair via [facility] (pending insurance auth) Elina HAGER
[2016-04-20] MEDS ORDERED: 0.9% Sodium Chloride 250 ML ONE (19:48)
[2016-04-20] MEDS: cefTRIAXone Inj 2 GM in IV Premix 1 EACH IV SCH (19:55)
[2016-04-20 21:08] VITALS: BP 120/61; PULSE 73; RESP 16; O2SAT 93
[2016-04-21] MEDS: oxyCODONE-Acetamin 10-325 mg Tablet PO PRN ×5 (01:14→17:13)
[2016-04-21] MEDS: hydrOXYzine Pamoate 25 mg Capsule PO PRN ×3 (01:14→22:25)
[2016-04-21] MEDS: Heparin 5,000 Unit/mL Inj SUBQ SCH ×3 (01:15→16:03)
[2016-04-21 05:40] VITALS: BP 173/79; PULSE 82; RESP 16; O2SAT 94
--- NOTE | 2016-04-21 06:13 | NUR ---
Confusion Patient awoke this am disoriented to place and situation, aide reoriented. informed aid that this was "normal". Will continue to monitor level of confusion. Patient teaching on pain medication. Mild anxiety noted throughout shift
[2016-04-21 08:00] VITALS: BP 116/57; PULSE 75; RESP 15; O2SAT 92
[2016-04-21] MEDS ORDERED: 0.9% Sodium Chloride 250 ML ONE (09:06)
[2016-04-21] MEDS: cefTRIAXone Inj 2 GM in IV Premix 1 EACH IV SCH (10:15)
--- NOTE | 2016-04-21 12:18 | PCM.PNMED ---
Subjective Date of Service Apr 21, 2016 Subjective Patient now is wishing to go to retirement facility for continuing physical therapy. She did have urinary tract infection by UA yesterday she was having some dysuria symptoms. Exam Vital Signs Vital Sign - Last Date Time Temp Pulse Resp B/P Pulse Ox O2 Delivery O2 Flow Rate FiO2 04/21/16 08:00 36.7 75 15 116/57 92 Room Air Intake and Output 04/20/16 04/20/16 04/21/16 Cumulative From/Thru 15:00 23:00 07:00 04/16/16 09:20 - 04/21/16 06:25 Intake Total 550 ml 460 ml 4410 ml Output Total 700 ml 450 ml 8256 ml Balance -150 ml 10 ml -3846 ml Intake Oral 550 ml 400 ml 4340 ml IV Total 60 ml 70 ml Output Urine Total 700 ml 450 ml 8256 ml # Voids 7 # Bowel Movements 0 0 Exam Head: Normocephalic atraumatic Chest: Clear to auscultation Cor: Regular rate and rhythm S1-S2 Abdomen: Soft nontender bowel sounds present Extremities: No pedal edema noted Lab and Diagnostics Result Diagram: 04/19/16 0655 04/19/16 0655 X-Rays, CTs and MRIs CT KNEE RIGHT W/O CONTRAST ([id number]) INDICATIONS: unable to walk after fall TECHNIQUE: Noncontrast 1-1.5 mm axial sections acquired from the mid-patella to the proximal tibia, with coronal and sagittal reformats. COMPARISON: [facility], CR, XR TIBIA FIBULA 2VW RT, 04/16/2016, 10: 11. FINDINGS: Image quality: Excellent. Bones: Diffuse osteopenia. Oblique, lateral tibial metaphyseal fracture, for example image 74 series 4. No definite depression of the articular surface. The fracture appears to extend to the base of the intercondylar notch although not well seen due to severe osteopenia. Mildly displaced fracture of the fibular head Post surgical changes related to intramedullary vimal and screw fixation in the distal femur. Mild degenerative joint disease with subchondral sclerosis. Soft tissues: Moderate joint effusion. IMPRESSION: Nondepressed lateral tibial plateau fracture. Mildly displaced fibular head fracture Severe osteopenia Partially visualized intramedullary vimal and screw fixation of the distal femur with prominent surrounding lucency raising the possibility of hardware loosening or failure. Recommend clinical correlation and if needed triple phase bone scan, versus serial radiographic followup could be performed. Small to moderate joint effusion Dictated by: Jay Snider M.D. on 04/16/2016 at 14:05 Assessment & Plan Active issues Right tibial plateau fracture due to Ground-level fall, with radiographic osteoporosis, severe, w/ ongoing pain and spasm --already on Vit D low dose, increase, though cannot tolerate high does, will accept fosamax w/ PCP now, --pending PT, nonweight bearing and immobilize right knee x 6-12 weeks, walker, knee immobilizer. Anticipate that she will need to use a walker as well as a wheelchair with leg extension .F/U /dr Lawson in 7-10 days in office w/ xray --morphine not helpful, started percocet and increased -- add vistaril for spams -- Anxiety about pain is a major contributor to her disabled / bed confined attitude so far. -- She will need lots of reassurance, and will need a wheelchair with a foot rest extension before going home --> will consider SNF tonight after lengthy discussion at bedside -We will work on continuing plans for continuing physical therapy at retirement facility as not safe to be discharged at this point in time will discuss with physical therapy and case management today. -We will also continue to explore discharging return to home with home healthcare services as a possibility UTI, acute, not present on admission -Have started IV Rocephin and at discharge will transition to oral medications. -Final sensitivities are pending. Culture is growing greater than 10 to the fifth gram-negative rods, presumably Escherichia coli. Partially visualized intramedullary vimal and screw fixation of the distal femur with prominent surrounding lucency raising the possibility of hardware loosening or failure. --Not mentioned in Dr. Lawson's note. This would appear to be a chronic type of problem that can be deferred to her orthopedic office follow up visit. Chronic issues known prior to admission, present on admission osteoporsis anxiety smoker, < 2 cig per day HTN/DLP --resume home meds --vitamin d Diet cardiac DVT prophylaxis heparin Code full Disposition obs status, likely dc to snf tomorrow if CM/SW able to facilitate. Assessment and plan were discussed with the patient and her . VTE Mechanical Devices: Intermittant Pneumatic CD Resuscitation Status: CPR: Attempt Resuscitation Time spent 30 minutes Bertha Schmidt MD Apr 21, 2016 12:18
[2016-04-21 14:10] VITALS: BP 115/55; PULSE 69; O2SAT 95
--- NOTE | 2016-04-21 14:50 | NUR ---
Social Work Continued Discharge Planning: MYRTLE and JOSELITO arizmendi Carole met with patient at bedside to discuss discharge plan. Patient educated on inpatient vs observation status. Patient states plan as SNF placement at [facility] or [facility]. MYRTLE sent referral to mentioned SNF's for possible acceptance. SW also sent referral to [facility] preemptively. Patient aware of private pay expense for rehab as she doesn't meet inpt criteria. [facility] provided face to face previously and following for secondary discharge plan options. Patient aware that Medicare will not cover expense for wheelchair and private pay rental [place] is $55/month. SW will continue to follow for SNF plans. PLAN: SNF, private pay pending acceptance. Patient medically stable for discharge pending placement. Elina HAGER Addendum: 04/21/16 at 1913 by ELLIE BAI Per [facility] private pay costs are $295-400/day. Per [facility] private pay costs are $260/day. Facility requires 2 weeks. [facility], $8,910 required up front. SW to discuss private pay options with patient tomorrow. SW to follow. Elina HAGER
[2016-04-21 19:28] VITALS: BP 131/69; PULSE 75; RESP 18; O2SAT 95
--- NOTE | 2016-04-21 23:48 | NUR ---
Pain management Patient c/o grogginess when taking Percocet, offered Tylenol and patient states medication was effective with out the grogginess. Bed in low position, call light within reach, and intentional rounding through out shift.
[2016-04-22] MEDS: Heparin 5,000 Unit/mL Inj SUBQ SCH ×3 (01:58→17:11)
[2016-04-22] MEDS: oxyCODONE-Acetamin 10-325 mg Tablet PO PRN ×3 (01:59→17:12)
[2016-04-22 04:44] VITALS: BP 129/55; PULSE 67; RESP 16; O2SAT 94
[2016-04-22 07:30] VITALS: BP 125/57; PULSE 67; RESP 16; O2SAT 93
[2016-04-22] MEDS: cefTRIAXone Inj 2,000 MG in Dextrose 5% Minibag Plus 50 ML IV SCH (09:24)
[2016-04-22] MEDS: ALPRAZolam 0.5 mg Tablet PO PRN (12:22)
[2016-04-22] MEDS: hydrOXYzine Pamoate 25 mg Capsule PO PRN ×2 (12:25→17:12)
--- NOTE | 2016-04-22 13:01 | NUR ---
PAIN P:pt continues to rate pain in right leg 10/11 I:pain medications administered by primary rn. Provided distraction with conversation E:Pain re-evaluated frequently rates pain at 10/11. Does not want to move from bed feels anxious about pain in right leg with movement.
--- NOTE | 2016-04-22 14:52 | PCM.PNMED ---
Subjective Date of Service Apr 22, 2016 Subjective Patient is slightly improved today with physical therapy. We are awaiting snf facility placement for continuing physical therapy. Exam Vital Signs Vital Sign - Last Date Time Temp Pulse Resp B/P Pulse Ox O2 Delivery O2 Flow Rate FiO2 04/22/16 07:30 36.8 67 16 125/57 93 Room Air Intake and Output 04/21/16 04/21/16 04/22/16 Cumulative From/Thru 15:00 23:00 07:00 04/16/16 09:20 - 04/22/16 05:25 Intake Total 1440 ml 600 ml 6450 ml Output Total 8256 ml Balance 1440 ml 600 ml -1806 ml Intake Oral 1440 ml 600 ml 6380 ml IV Total 70 ml Output Urine Total 8256 ml # Voids 4 3 14 # Bowel Movements 0 0 0 Exam Constitutional: Female in no acute distress Head: Normocephalic atraumatic Chest: Clear to auscultation Cor: Regular rate and rhythm S1-S2 Abdomen: Soft nontender bowel sounds present Extremity exam no pedal edema noted Neuro: Alert and oriented 3, motor strength intact bilaterally Lab and Diagnostics Result Diagram: 04/19/16 0655 04/19/16 0655 X-Rays, CTs and MRIs CT KNEE RIGHT W/O CONTRAST ([id number]) INDICATIONS: unable to walk after fall TECHNIQUE: Noncontrast 1-1.5 mm axial sections acquired from the mid-patella to the proximal tibia, with coronal and sagittal reformats. COMPARISON: [facility], CR, XR TIBIA FIBULA 2VW RT, 04/16/2016, 10: 11. FINDINGS: Image quality: Excellent. Bones: Diffuse osteopenia. Oblique, lateral tibial metaphyseal fracture, for example image 74 series 4. No definite depression of the articular surface. The fracture appears to extend to the base of the intercondylar notch although not well seen due to severe osteopenia. Mildly displaced fracture of the fibular head Post surgical changes related to intramedullary vimal and screw fixation in the distal femur. Mild degenerative joint disease with subchondral sclerosis. Soft tissues: Moderate joint effusion. IMPRESSION: Nondepressed lateral tibial plateau fracture. Mildly displaced fibular head fracture Severe osteopenia Partially visualized intramedullary vimal and screw fixation of the distal femur with prominent surrounding lucency raising the possibility of hardware loosening or failure. Recommend clinical correlation and if needed triple phase bone scan, versus serial radiographic followup could be performed. Small to moderate joint effusion Dictated by: Jay Snider M.D. on 04/16/2016 at 14:05 Assessment & Plan Active issues Right tibial plateau fracture due to Ground-level fall, with radiographic osteoporosis, severe, w/ ongoing pain and spasm --already on Vit D low dose, increase, though cannot tolerate high does, will accept fosamax w/ PCP now, --pending PT, nonweight bearing and immobilize right knee x 6-12 weeks, walker, knee immobilizer. Anticipate that she will need to use a walker as well as a wheelchair with leg extension .F/U /dr Lawson in 7-10 days in office w/ xray --morphine not helpful, started percocet and increased -- add vistaril for spams -- Anxiety about pain is a major contributor to her disabled / bed confined attitude so far. -- She will need lots of reassurance, and will need a wheelchair with a foot rest extension before going home --> will consider SNF tonight after lengthy discussion at bedside -We will work on continuing plans for continuing physical therapy at snf facility as not safe to be discharged at this point in time will discuss with physical therapy and case management today. -We will also continue to explore discharging return to home with home healthcare services as a possibility UTI, acute, not present on admission -Have started IV Rocephin and at discharge will transition to oral medications. -Final sensitivities are pending. Culture is growing greater than 10 to the fifth gram-negative rods, presumably Escherichia coli. Partially visualized intramedullary vimal and screw fixation of the distal femur with prominent surrounding lucency raising the possibility of hardware loosening or failure. --Not mentioned in Dr. Lawson's note. This would appear to be a chronic type of problem that can be deferred to her orthopedic office follow up visit. Chronic issues known prior to admission, present on admission osteoporsis anxiety smoker, < 2 cig per day HTN/DLP --resume home meds --vitamin d Diet cardiac DVT prophylaxis heparin Code full Disposition obs status, likely dc to snf tomorrow if CM/SW able to facilitate. Assessment and plan were discussed with the patient and her . VTE Mechanical Devices: Intermittant Pneumatic CD Resuscitation Status: CPR: Attempt Resuscitation Time spent 30 minutes Bertha Schmidt MD 19, 2017 14:52
[2016-04-22 16:06] VITALS: BP 111/59; PULSE 70; RESP 16; O2SAT 94
--- NOTE | 2016-04-22 16:34 | NUR ---
Social Work Continued Discharge Planning: SW met with patient at bedside to discuss discharge plan. Patient states plan as SNF placement, but patient's spouse states that he has not had a chance to visit the facilities to make a choice. [facility] and [facility] have both accepted the patient clinically. Patient's spouse states that he will visit the facilities today and notify SW of his choice. SW notified patient physician, CM and nurse. SW will continue to follow for SNF plans. PLAN: SNF, private pay. Patient medically stable for discharge pending placement. Deb tamez LMSW, ACM
--- NOTE | 2016-04-22 18:17 | NUR ---
Activity Pt's c/o pain 10/11 during AM medications given and pt was more comfortable. Pt having significant anxiety over discharge and placement in SNF vs being able to go home. Pt more comfortable after medications. Pt was able to ambulate to [facility] today with non-weight bearing status of right leg. Addendum: 04/22/16 at 1935 by KEVIN CHAVEZ RN Pt c/o pain with immobilizer. Readjusted immobilizer, placed washcloths underneath top and bottom to protect skin and left slightly looser, but still enough to support leg. Pt is aware not to get up unless immobilizer is tightened.
[2016-04-22 19:23] VITALS: BP 107/55; PULSE 72; RESP 18; O2SAT 95
[2016-04-23] MEDS: Heparin 5,000 Unit/mL Inj SUBQ SCH ×3 (00:45→17:55)
[2016-04-23] MEDS: hydrOXYzine Pamoate 25 mg Capsule PO PRN ×4 (02:44→18:34)
[2016-04-23] MEDS: oxyCODONE-Acetamin 10-325 mg Tablet PO PRN ×5 (02:46→23:08)
[2016-04-23 05:24] VITALS: BP 119/60; PULSE 69; RESP 16; O2SAT 94
--- NOTE | 2016-04-23 06:15 | NUR ---
Activity-pain Pt complains of pain in R leg, managed with po percocet and vistaril with good results. No GI, Cardiac, or respiratory distress. CSM intact, R leg in immobilizer. in room this shift. No new issues. Will continue cares
--- NOTE | 2016-04-23 06:50 | PCM.PNORTH ---
Subjective Date of Service: Apr 23, 2016 Visit Information: Reason for Visit Tibial Plateu Fracture Surgery/Surgery Date Post-Op Day # Date of Admission: Apr 16, 2016 at 17:18 Hospital Day # Subjective Found patient awake and alert this morning and sitting up in bed. No complaints of pain at this time. Discussed physical therapy and mobility with patient at quite some length this morning regarding attaining increased mobility which will open up her options for care. Patient and spouse are concerned with her discharge plans and what they consider threats of receiving bills if they do not do certain things at certain times. This is quite confusing for the patient and spouse and I have asked them to speak with social work regarding what their best options are. Patient's spouse do seem willing to do what is reasonable if they can land on a farm target. Encouraged patient repeatedly to be up and about with physical therapy and be up for meals which will help her overall recovery and help her gain mobility which will again open up her options for treatment and discharge disposition. Postop General: No Shortness of Breath, No Chest Pain Pain Management: PO Objective Exam Objective Orientation: Alert and oriented and pleasant. Dressing: Knee immobilizer in place and well positioned Wound: No open wounds present. Tenderness to palpation about the proximal tibia Compartments: Calf and thigh are soft and nontender Mobility/sensation: Needle and sensation are intact that right lower extremity distally. Abduction wedge: None CHRISTIE hose: None Mcgrath: None Drain: None Gait: Upper with therapy for a few steps and transferred to BSC. Vital Signs and I/O Vital Sign - Last Date Time Temp Pulse Resp B/P Pulse Ox O2 Delivery O2 Flow Rate FiO2 04/23/16 05:24 36.4 69 16 119/60 94 Room Air Intake and Output 04/22/16 04/22/16 04/23/16 Cumulative From/Thru 15:00 23:00 07:00 04/16/16 09:20 - 04/23/16 05:37 Intake Total 840 ml 600 ml 7890 ml Output Total 400 ml 8656 ml Balance 440 ml 600 ml -766 ml Intake Oral 840 ml 600 ml 7820 ml IV Total 70 ml Output Urine Total 400 ml 8656 ml # Voids 2 16 # Bowel Movements 0 0 0 Lab & Micro Results Microbiology 04/20/16 Urine Culture - Final, Complete Escherichia Coli Result Diagram: 04/19/16 0655 04/19/16 0655 General Appearance: Alert, Oriented X3, Cooperative, No Acute Distress Extremities: No Compartment Syndrom Noted, Thigh & Calf Soft/Nontender Postop Sensory Motor: Distal Motor Intact, Movement in Toes, Distal Sensation Intact Activity: Activity per PT, Ambulate with PT (strict nonweightbearing at the right lower extremity using knee immobilizer and front wheeled walker) Catheters: None Assessment & Plan Impression Patient is a 70-year-old female who is finding it difficult to manage the process of being physically infirmed with some pain as well as the hospital and insurance requirements for her discharge to safe disposition until she can be seen in orthopedic office. She is progressing in her mobility very slowly but is progressing and has been encourage this morning to continue her efforts. Problems: Plan Postadmit day #7 from a right tibial plateau fracture suffered on 04/16/2016 and is under orthopedic treatment by Dr. Edmundo Lawson. Weight bearing status: Strict nonweightbearing on the right lower extremity. Mobility aid: Front wheel walker Immobilization: Knee immobilizer Precautions: Standard orthopedic precautions for balance and safety Physical therapy: Continue formal physical therapy for mobility, gait and safety. Patient may be up in chair for meals and may remove knee immobilizer for hygiene such as showering bed bath. Patient has been encouraged several times this morning to work with formal physical therapy to gain mobility and be up in chair. I have encouraged patient that there discharge disposition and course of treatment will be greatly improved as she works diligently on gaining mobility with her walker. Pain control: Continue by mouth pain medication as needed. DVT prophylaxis: Continue heparin 5000 units daily for DVT prophylaxis while in house per hospitalist service. Wound care: None Infectious DZ: None Mcgrath: Absent Dressing: None Drain: None Abduction wedge: None CHRISTIE hose: None Nursing communication: Nursing please encourage and facilitate patient being up to chair for meals 3 times a day and remove knee immobilizer for hygiene as needed. 2-week follow-up: Follow-up 2 weeks post injury at [facility] orthopedic clinic with Dr. Edmundo Bell. 6-week follow-up: To be determined Orthopedics thanks hospitalist service for their help in the medical management of this patient. Discharge plan: Anticipate discharge to custodial facility or rehabilitation facility or home with home health by hospitalist service as determined by medical needs of the patient and social service coordinator based on existing guidelines. VTE Prophylaxis: Sub-Q Heparin (Unfractionated), SCDs Resuscitation Status: CPR: Attempt Resuscitation Kiko Claudio PA-C Apr 23, 2016 06:50
[2016-04-23 07:48] VITALS: BP 108/44; PULSE 74; RESP 16; O2SAT 93
[2016-04-23] MEDS: cefTRIAXone Inj 2,000 MG in Dextrose 5% Minibag Plus 50 ML IV SCH (09:52)
[2016-04-23 10:36] LABS: BASOPHILS % (AUTO) 0.8 % (0-3); EOSINOPHILS % (AUTO) 3.3 % (0-5); MONOCYTES % (AUTO) 13.4 % (4-12); Mean Corpuscular Hemoglobin 31.5 pg (27.0-35.0); Mean Corpuscular Volume 97.6 fL (81-100); NEUTROPHILS % (AUTO) 43.4 % (40-74); Platelet Count 394 bil/L (150-400)
[2016-04-23 15:44] VITALS: BP 111/55; PULSE 76; RESP 16; O2SAT 93
--- NOTE | 2016-04-23 15:48 | NUR ---
Social Work: Continued Discharge Planning Data and Assessment:Executive Pilot met with patient and patient's at bedside to discuss discharge plan. There was not a SNF that the patient's spouse wanted her to discharge to. Patient and patient's states that that patient's will discharge home with Home Health. Patient and patient's spouse will notify rn social work if they still want [facility] as the home health provider for home. Patient's spouse states that he has visited [facility] for the patient' WC and he will poultry picking machine tender patient's WC from [facility] on 04/24/16. also provided patient and patient's spouse with a [employer] booklet for private pay post acute care nurse practitioner resources. Executive Pilot will continue to follow. Plan: Patient is likely to discharge home with spouse, private pay caregivers and HH on 04/24/16. Patient will transport home via POV. Executive Pilot will continue to follow. brian García LMSW, ACJoni
--- NOTE | 2016-04-23 16:18 | PCM.PNMED ---
Subjective Date of Service Apr 23, 2016 Subjective Patient seen this morning, noting inability to ambulate sufficiently. States she cannot even step forward due to the rubber on the bottom of the socks. Disposition has been in question, patient still looking for custodial facility as she cannot feel comfortable going to [facility] after 's saw the facility Exam Vital Signs Vital Sign - Last Date Time Temp Pulse Resp B/P Pulse Ox O2 Delivery O2 Flow Rate FiO2 04/23/16 15:44 37.0 76 16 111/55 93 Room Air Intake and Output 04/22/16 04/22/16 04/23/16 Cumulative From/Thru 15:00 23:00 07:00 04/16/16 09:20 - 04/23/16 05:37 Intake Total 840 ml 600 ml 7890 ml Output Total 400 ml 8656 ml Balance 440 ml 600 ml -766 ml Intake Oral 840 ml 600 ml 7820 ml IV Total 70 ml Output Urine Total 400 ml 8656 ml # Voids 2 16 # Bowel Movements 0 0 0 Exam Constitutional: Female in no acute distress Head: Normocephalic atraumatic Chest: Clear to auscultation Cor: Regular rate and rhythm S1-S2 Abdomen: Soft nontender bowel sounds present Extremity exam no pedal edema noted Neuro: Alert and oriented 3, motor strength intact bilaterally IVs and Medications Medications Reviewed: Medications were reviewed in detail Lab and Diagnostics Result Diagram: 04/23/16 1020 04/23/16 1020 X-Rays, CTs and MRIs CT KNEE RIGHT W/O CONTRAST ([id number]) INDICATIONS: unable to walk after fall TECHNIQUE: Noncontrast 1-1.5 mm axial sections acquired from the mid-patella to the proximal tibia, with coronal and sagittal reformats. COMPARISON: [facility], CR, XR TIBIA FIBULA 2VW RT, 04/16/2016, 10: 11. FINDINGS: Image quality: Excellent. Bones: Diffuse osteopenia. Oblique, lateral tibial metaphyseal fracture, for example image 74 series 4. No definite depression of the articular surface. The fracture appears to extend to the base of the intercondylar notch although not well seen due to severe osteopenia. Mildly displaced fracture of the fibular head Post surgical changes related to intramedullary vimal and screw fixation in the distal femur. Mild degenerative joint disease with subchondral sclerosis. Soft tissues: Moderate joint effusion. IMPRESSION: Nondepressed lateral tibial plateau fracture. Mildly displaced fibular head fracture Severe osteopenia Partially visualized intramedullary vimal and screw fixation of the distal femur with prominent surrounding lucency raising the possibility of hardware loosening or failure. Recommend clinical correlation and if needed triple phase bone scan, versus serial radiographic followup could be performed. Small to moderate joint effusion Dictated by: Jay Snider M.D. on 04/16/2016 at 14:05 Assessment & Plan Active issues Right tibial plateau fracture due to Ground-level fall, with radiographic osteoporosis, severe, w/ ongoing pain and spasm --already on Vit D low dose, increase, though cannot tolerate high does, will accept fosamax w/ PCP now, --pending PT, nonweight bearing and immobilize right knee x 6-12 weeks, walker, knee immobilizer. Anticipate that she will need to use a walker as well as a wheelchair with leg extension .F/U /dr Lawson in 7-10 days in office w/ xray --morphine not helpful, started percocet and increased -- add vistaril for spams -- Anxiety about pain is a major contributor to her disabled / bed confined attitude so far. -- She will need lots of reassurance, and will need a wheelchair with a foot rest extension before going home --> will consider SNF tonight after lengthy discussion at bedside, discharge tomorrow to snf UTI, acute, not present on admission -Have started IV Rocephin and at discharge will transition to oral medications. -Final sensitivities are pending. Culture Escherichia coli, switch to Cipro or cefuroxime at discharge Partially visualized intramedullary vimal and screw fixation of the distal femur with prominent surrounding lucency raising the possibility of hardware loosening or failure. --Not mentioned in Dr. Lawson's note. This would appear to be a chronic type of problem that can be deferred to her orthopedic office follow up visit. Chronic issues known prior to admission, present on admission osteoporsis anxiety smoker, < 2 cig per day HTN/DLP --resume home meds --vitamin d Diet cardiac DVT prophylaxis heparin Code full Disposition obs status, likely dc to snf tomorrow Assessment and plan were discussed with the patient and her . Pain Evaluation: Adequate Pain Control VTE Prophylaxis: Sub-Q Heparin (Unfractionated), SCDs VTE Mechanical Devices: Intermittant Pneumatic CD Resuscitation Status: CPR: Attempt Resuscitation Time spent 40 minutes spent with evaluation and management with this patient Stu Moore DO Apr 23, 2016 16:18
[2016-04-23 20:45] VITALS: BP 126/62; PULSE 70; RESP 20; O2SAT 93
[2016-04-24] MEDS: Heparin 5,000 Unit/mL Inj SUBQ SCH ×2 (01:06→08:05)
[2016-04-24] MEDS: oxyCODONE-Acetamin 10-325 mg Tablet PO PRN ×2 (03:14→09:58)
--- NOTE | 2016-04-24 04:16 | NUR ---
Pain Patient states pain is 7/10. Patient was given 2 Percocet 10/325. Patient stated the Percocet lowered her pain to a comfortable level 5/10. Patient A&OX3. by bedside. Call light within reach.
[2016-04-24 05:56] VITALS: BP 138/63; PULSE 73; RESP 18; O2SAT 93
[2016-04-24] MEDS: cefTRIAXone Inj 2,000 MG in Dextrose 5% Minibag Plus 50 ML IV SCH (08:01)
[2016-04-24] MEDS: hydrOXYzine Pamoate 25 mg Capsule PO PRN (09:57)
--- NOTE | 2016-04-24 11:05 | PCM.DIMED ---
Discharge Instructions Date of Service Apr 24, 2016 Dates of Hospitalization Apr 16, 2016 at 17:18 Discharge Diagnosis Discharge Diagnosis Acute Right tibial plateau fracture Every UTI Osteoporosis Anxiety Tobacco use Hypertension Hyperlipidemia Medication Instructions Please take your oxycodone pain medication as instructed, this medication can potentially cause respiratory depression and if taken more than prescribed. Please take stool softeners along with this as a scheduled medication can constipate you. I have prescribed a stool softener and laxative E to take every day that she take pain medications. If he developed persistent loose stool you may reduce her frequency to take these bowel regimen medications every other day. Test Results CT knee IMPRESSION: Nondepressed lateral tibial plateau fracture. Mildly displaced fibular head fracture Severe osteopenia Partially visualized intramedullary vimal and screw fixation of the distal femur with prominent surrounding lucency raising the possibility of hardware loosening or failure. Recommend clinical correlation and if needed triple phase bone scan, versus serial radiographic followup could be performed. Small to moderate joint effusion Dictated by: Jay Snider M.D. on 04/16/2016 at 14:05 Diet Low fat, Low Sodium, Heart Healthy Activity Home Health Phyical Therapy, Other (home visiting nursing, home health physical therapy and occupational therapy) Call your provider Fever or Chills, Shortness of breath, Chest pain Patient Instructions I have prescribed pain medications as noted above, please take these as prescribed along with stool softeners as noted above. He has been treated for urinary tract infection and have finished your course of treatment. Please call your primary care doctor if you have any burning with urination or develop any fevers, chills, nausea or vomiting. I would like to follow up with her primary care physician in one week as well. The orthopedic physician would like you to follow up in the orthopedic clinic in 7-10 days for a recheck with x-rays of your knee. Please continue your home health physical therapy and occupational therapy Follow-up with PCP in: 1 week (with Dr. Bird by calling make an appointment and let them know this will be a hospital follow-up) Provider: Edmundo Lawson DO Follow-up in: 1 week (follow-up in 7-10 days in the orthopedic clinic by calling and making appointment) Attending's Statement It was a pleasure meeting you and I wish you the best of luck in the recovery, please feel free to contact me with any questions by calling [facility] Stu Moore DO Apr 24, 2016 11:05
[2016-04-24] MEDS ORDERED: MAGN800O PO (11:10)
[2016-04-24] MEDS ORDERED: DOCU-41 PO (11:10)
[2016-04-24] MEDS ORDERED: OXYC-466 PO (11:10)
--- NOTE | 2016-04-24 11:18 | PCM.DC.MED ---
Discharge Summary Date of Service Apr 24, 2016 Dates of Hospitalization Date of Hospital Admission Apr 16, 2016 at 17:18 Date of Discharge: Apr 24, 2016 Providers: Admitting Physician: Corin Sanchez MD Primary Care Physician: Trinidad Kaur MD Attending Physician: Corin Sanchez MD Diagnosis at Time of Discharge Diagnosis at Time of Discharge Acute Right tibial plateau fracture Every UTI Osteoporosis Anxiety Tobacco use Hypertension Hyperlipidemia Consultations Orthopedic surgery - per consult note on 04/17: We discussed treatment options and I recommended nonoperative treatment with a knee immobilizer and nonweightbearing. She was placed into an appropriately sized knee immobilizer. I would like her remain nonweightbearing on the right lower extremity for likely a period of 6-12 weeks. I would like her to follow up with me in the clinic in about 7-10 days for recheck with x-rays. Anticipate that she will need to use a walker as well as a wheelchair with leg extension and her is going to need time in order to build a ramp to get her into the home and also to make arrangements, as they generally sleep upstairs. Procedures XRay, CTs & MRIs CT KNEE RIGHT W/O CONTRAST (08210) INDICATIONS: unable to walk after fall TECHNIQUE: Noncontrast 1-1.5 mm axial sections acquired from the mid-patella to the proximal tibia, with coronal and sagittal reformats. COMPARISON: [facility], CR, XR TIBIA FIBULA 2VW RT, 04/16/2016, 10: 11. FINDINGS: Image quality: Excellent. Bones: Diffuse osteopenia. Oblique, lateral tibial metaphyseal fracture, for example image 74 series 4. No definite depression of the articular surface. The fracture appears to extend to the base of the intercondylar notch although not well seen due to severe osteopenia. Mildly displaced fracture of the fibular head Post surgical changes related to intramedullary vimal and screw fixation in the distal femur. Mild degenerative joint disease with subchondral sclerosis. Soft tissues: Moderate joint effusion. IMPRESSION: Nondepressed lateral tibial plateau fracture. Mildly displaced fibular head fracture Severe osteopenia Partially visualized intramedullary vimal and screw fixation of the distal femur with prominent surrounding lucency raising the possibility of hardware loosening or failure. Recommend clinical correlation and if needed triple phase bone scan, versus serial radiographic followup could be performed. Small to moderate joint effusion Dictated by: Jay Snider M.D. on 04/16/2016 at 14:05 Brief History 70-year-old female, smoker, osteoporosis, missed a step and landed on her knee right, presented to the ER due to pain of the knee right. She was found to have tibial fracture. Dr. Jernigan from orthopedics recommended immobilization and nonweightbearing for 6 weeks with follow-up in his office. In the ER she was unable to ambulate with physical therapy and was admitted for pain control and PT. Hospital Course Active issues Right tibial plateau fracture due to Ground-level fall, with radiographic osteoporosis, severe, w/ ongoing pain and spasm -admitted for pain control/PT --already on Vit D low dose, increase, though cannot tolerate high does, will accept fosamax w/ PCP now, -- Patient was evaluated and seen by PT, nonweight bearing and immobilize right knee x 6-12 weeks, walker, knee immobilizer. Anticipate that she will need to use a walker as well as a wheelchair with leg extension .F/U /dr Lawson in 7-10 days in office w/ xray -- Pain treated with percocet and increased to 1-2 tabs every 4 when necessary, patient will be discharged with oxycodone every 6 when necessary with strict instructions to take a bowel regimen along with this medication and instructions not to take more than prescribed as this can result in -- Patient displayed notable anxiety about pain is a major contributor to her disabled / bed. She was informed about options including recommendations for SNF per PT and subsequently patient's checked out the only option of [facility] due to bed availability. This was declined as has been patient felt facility was not sanitary upon inspection. Patient verbalizes frustration with not having adequate time to set up assistance at home, watch caser sats in had discussion with patient regarding indications for inpatient status and options for home care including going through a list of resources for home aides. Today patient be discharged home with home health PT/OT/ visiting nursing UTI, acute, not present on admission -Patient finished IV Rocephin - treated for Resistant Escherichia Coli, Finished Course Prior to Discharge Partially visualized intramedullary vimal and screw fixation of the distal femur with prominent surrounding lucency raising the possibility of hardware loosening or failure. --Not mentioned in Dr. Lawson's note. This would appear to be a chronic type of problem that can be deferred to her orthopedic office follow up visit. Chronic issues known prior to admission, present on admission osteoporsis anxiety smoker, < 2 cig per day HTN/DLP --resume home meds --vitamin d Diet cardiac DVT prophylaxis heparin Code full Assessment and plan were discussed with the patient and her at length. Exam Vital Signs (Last) Date Time Temp Pulse Resp B/P Pulse Ox O2 Delivery O2 Flow Rate FiO2 04/24/16 05:56 36.8 73 18 138/63 93 Room Air Exam Constitutional: Female in no acute distress Head: Normocephalic atraumatic Chest: Clear to auscultation Cor: Regular rate and rhythm S1-S2 Abdomen: Soft nontender bowel sounds present Extremity exam no pedal edema noted, knee immobilizer in place, wound dry Neuro: Alert and oriented 3, motor strength intact bilaterally Test 04/16/16 16:09 04/16/16 16:30 04/20/16 10:45 04/23/16 10:20 Hold Urine Received (Received) Hold Purple Top Tube Received (Received) Prothrombin Time 10.2sec (8.1-12.5) Prothromb Time International Ratio 0.95ratio Hold Blue Top Tube Received (Received) Total Bilirubin 0.3mg/dL (0.0-1.2) Aspartate Amino Transf (AST/SGOT) 20U/L (0-50) Alanine Aminotransferase (ALT/SGPT) 19U/L (0-32) Alkaline Phosphatase 75U/L (25-165) Total Protein 7.8g/dL (6.4-8.4) Albumin 3.9g/dL (3.4-5.0) Hold Red Top Tube Received (Received) Hold [place] Top Tube Received (Received) Urine Color Yellow (YELLOW) Urine Appearance Hazy (CLEAR,HAZY) Urine pH 6.5 (5.0-8.0) Urine Specific [place] 1.005 (1.003-1.035) Urine Protein Negativemg/dL (NEG,TRACE) Urine Glucose (UA) Negativemg/dL (NEGATIVE) Urine Ketones Negativemg/dL (NEGATIVE) Urine Occult Blood Small (NEGATIVE) Urine Nitrite Positive (NEGATIVE) Urine Bilirubin Negative (NEGATIVE) Urine Urobilinogen Normalmg/dL (NORMAL) Urine Leukocyte Esterase Large (NEGATIVE) Urine RBC 3-10/hpf (0-2) Urine WBC >50/hpf (0-5) Urine Epithelial Cells Occasional/hpf (NONE-MOD) Urine Crystals None seen (NONE SEEN) Urine Bacteria Many/hpf (NONE-FEW) Urine Hyaline Casts None/lpf (NONE) Urine Granular Casts None seen (NONE SEEN) Urine Waxy Casts None seen (NONE SEEN) Urine Red Blood Cell Casts None seen (NONE SEEN) Urine White Blood Cell Casts None seen (NONE SEEN) Urine Mucus None seen (None Seen) Urine Trichomonas None seen (NONE SEEN) Urine Yeast None (NONE SEEN) Urinalysis Comment None Urine Culture Reflexed Indicated White Blood Count 6.4th/mm3 (3.8-10.1) Red Blood Count 3.37mil/mm3 (3.90-5.20) Hemoglobin 10.6g/dL (12.0-15.6) Hematocrit 32.9% (35.0-46.0) Mean Corpuscular Volume 97.6fL (81-100) Mean Corpuscular Hemoglobin 31.5pg (27.0-35.0) Mean Corpuscular Hemoglobin Concent 32.2% (32.0-37.0) Red Cell Distribution Width 13.4% (12.3-15.4) Platelet Count 394bil/L (150-400) Neutrophils (%) (Auto) 43.4% (40-74) Lymphocytes (%) (Auto) 38.6% (14-46) Monocytes (%) (Auto) 13.4% (4-12) Eosinophils (%) (Auto) 3.3% (0-5) Basophils (%) (Auto) 0.8% (0-3) Sodium Level 135mEq/L (134-144) Potassium Level 4.3mEq/L (3.5-5.2) Chloride Level 96mEq/L (97-108) Carbon Dioxide Level 26mmol/L (18-29) Blood Urea Nitrogen 8mg/dL (8-27) Creatinine 0.46mg/dL (0.57-1.00) Estimat Glomerular Filtration Rate 191mL/min (>59) Glucose Level 119mg/dL (60-99) Calcium Level 8.7mg/dL (8.5-10.1) Microbiology Results Treated for ampicillin resistant Escherichia coli on culture positive on April 20 Discharge Medications Discharge Medications Alprazolam (Alprazolam) 0.5 Mg Tablet 0.5 MG PO BID (Reported) Amlodipine (Amlodipine) 10 Mg Tablet 10 MG PO DAILY (Reported) Carvedilol (Carvedilol) 6.25 Mg Tablet 9.37 MG PO BID (Reported) Docusate Sodium (Colace) 100 Mg Capsule 100 MG PO BID Prescribed by: NITO MOORE, DO Simvastatin (Simvastatin) 10 Mg Tablet 10 MG PO HS (Reported) As needed Magnesium Hydroxide (Milk of Magnesia) 2,400 Mg/10 Ml Oral.susp 10 ML PO QID PRN PRN FOR CONSTIPATION Prescribed by: NITO MOORE, oxyCODONE-Acetaminophen 10-325 mg (oxyCODONE-Acetaminophen 10-325 mg) 1 Each Tablet 1-2 TAB PO QID PRN PRN q6 Prescribed by: NITO MOORE, DO Additional med instructions Please take your oxycodone pain medication as instructed, this medication can potentially cause respiratory depression and if taken more than prescribed. Please take stool softeners along with this as a scheduled medication can constipate you. I have prescribed a stool softener and laxative E to take every day that she take pain medications. If he developed persistent loose stool you may reduce her frequency to take these bowel regimen medications every other day. Followup Plan Discharge Diet: Low fat, Low Sodium, Heart Healthy Discharge Activity: Home Health Phyical Therapy, Other (home visiting nursing, home health physical therapy and occupational therapy) Patient Instructions I have prescribed pain medications as noted above, please take these as prescribed along with stool softeners as noted above. He has been treated for urinary tract infection and have finished your course of treatment. Please call your primary care doctor if you have any burning with urination or develop any fevers, chills, nausea or vomiting. I would like to follow up with her primary care physician in one week as well. The orthopedic physician would like you to follow up in the orthopedic clinic in 7-10 days for a recheck with x-rays of your knee. Please continue your home health physical therapy and occupational therapy Follow-up with PCP in: 1 week (with Dr. Bird by calling make an appointment and let them know this will be a hospital follow-up) Provider: Edmundo Lawson DO Follow-up in: 1 week (follow-up in 7-10 days in the orthopedic clinic by calling and making appointment) Time spent 40 minutes spent with evaluation and management: Discharge this patient Nito Moore DO Apr 24, 2016 11:18
[2016-04-24 12:40] VITALS: BP 123/62; PULSE 77; RESP 18; O2SAT 98
--- NOTE | 2016-04-24 13:29 | NUR ---
Discharge Orders for discharge were received. The patient was aware of and agreeable to the plan. The patient was given information regarding her diagnosis, treatment, follow up instructions, signs and symptoms to be aware of and information on her new medications. The patient was given a hard copy of her scripts and her asymptomatic IV was removed intact. The patient's belongings were gathered and she transferred into a wheelchair. She was then wheeled to the main entrance where she transferred into an awaiting private vehicle. At the time of discharge the patient was alert and oriented, affected leg stable in immobilizer.
== END 2016-04-24 13:15 | disposition home or self-care (01) ==
LOC: SED 09:01 → EDBD 09:01 → OSC 17:18
PROVIDERS: ADMIT Urology; ATTEND Urology
DX: S82.144A Nondisplaced bicondylar fracture of right tibia, initial encounter for closed fracture (principal); N39.0 Urinary tract infection, site not specified; B96.20 Unspecified Escherichia coli [E. coli] as the cause of diseases classified elsewhere; M85.861 Other specified disorders of bone density and structure, right lower leg; F41.9 Anxiety disorder, unspecified; E78.5 Hyperlipidemia, unspecified; I10 Essential (primary) hypertension; W10.9XXA Fall (on) (from) unspecified stairs and steps, initial encounter; Y93.9 Activity, unspecified; Y92.9 Unspecified place or not applicable; Y99.8 Other external cause status; F17.210 Nicotine dependence, cigarettes, uncomplicated; Z85.828 Personal history of other malignant neoplasm of skin; Z16.11 Resistance to penicillins
CPT/HCPCS: 36415; 73562; 73590; 73700; 80048; 80053; 81000; 85025; 85610; 87086; 87088; 87186; 96365; 96366; 96375; 96376; 97162; 97530; 99285; G0378; G8978; G8979; J0696; J1170; J1644; J2270; J7050; Q0177